=== PATIENT | female | born 1980 | race Caucasian/White ===

== ENCOUNTER 2020-10-31 02:43 | Emergency (ER) | payer MEDICAID, MEDICARE ==
[~2020-10-31] VITALS: Ht 165.1 cm; Wt 91.0 kg
[2020-10-31 02:45] VITALS: BP 120/83
[2020-10-31] MEDS ORDERED: NALOXONE HCL 0.4 MG/ML 1ML VIAL IV PRN (03:00)
== END 2020-10-31 03:05 | disposition left against medical advice (07) ==
LOC: ER 02:43
DX: T40.2X1A Poisoning by other opioids, accidental (unintentional), initial encounter (principal); J45.909 Unspecified asthma, uncomplicated; Y92.9 Unspecified place or not applicable; Z88.6 Allergy status to analgesic agent
CPT/HCPCS: 99283; Z7610